=== PATIENT | female | born 1995 | race Caucasian/White ===

== ENCOUNTER 2020-09-07 07:38 | Day surgery (SDC) | payer OTHER ==
[~2020-09-07] VITALS: Ht 170.2 cm; Wt 81.2 kg
[~2020-09-07 07:38] MED LIST: FERROUS SULFAT325 MG PO; K-DUR20 MEQ PO; MULTI-DAY VITAM1 TAB PO; OMEPRAZOLE40 MG PO
[2020-09-07 08:04] LABS: HEMATOCRIT 39.3 % (36.0-48.0); HEMOGLOBIN 13.2 g/dL (12-16); MCHC 33.6 g/dL (31.0-37.0); MCV 89.5 fL (80.0-100.0); MEAN PLATELET VOLUME 8.7 fL (7.4-10.4); RBC 4.39 10x6/uL (4.00-5.40); RDW 14.9 % (11.5-14.5); WBC 8.9 10x3/uL (4.8-10.8)
[2020-09-07 08:22] LABS: HCG SERUM NEGATIVE (NEGATIVE)
[2020-09-07 09:38] VITALS: BP 99/55; Ht 170.2 cm; Wt 81.2 kg
--- NOTE | 2020-09-07 15:33 | NUR ---
1525 PT DRESSED, REQUESTS RELEASE, STATES PAIN 07/16. RELEASED IN WC.
== END 2020-09-07 15:25 | disposition home or self-care (01) ==
LOC: D.OPS 07:38
PROVIDERS: Anesthesiology; ATTEND Obstetrics & Gynecology Maternal & Fetal Medicine
DX: N80.8 Other endometriosis (principal); N83.201 Unspecified ovarian cyst, right side; R10.2 Pelvic and perineal pain